=== PATIENT | female | born 1980 | race Caucasian/White ===

== ENCOUNTER 2021-10-10 21:03 | Emergency (ER) | payer BC, OTHER ==
[~2021-10-10] VITALS: Ht 162.6 cm; Wt 66.9 kg
[2021-10-10] MEDS ORDERED: BACITRACIN ZINC OINT UDPKT TOP ONE (22:00)
[2021-10-10] MEDS ORDERED: IBUPROFEN 600MG TABLET PO ONE (22:00)
[2021-10-10] MEDS ORDERED: LIDOCAINE HCL/PF 1% 10 MG/ML 5ML VIAL INFIL ONE (22:00)
[2021-10-10] MEDS ORDERED: TETANUS, DIPHTHERIA, PERTUSSIS VAC/PF 0.5ML (>10YR OLD) IM ONE (22:00)
[2021-10-10 22:15] VITALS: BP 138/79
[2021-10-10] MEDS ORDERED: LIDOCAINE HCL 1% 20ML VIAL (Pyxis) INJ INFIL NR (22:15)
[2021-10-10] MEDS ORDERED: CEFTRIAXONE SODIUM 1 G/VIAL IM ONE (23:00)
[2021-10-10] MEDS ORDERED: CEPH500C2 MT (23:53)
[2021-10-10] MEDS ORDERED: IBUP-2028 MT (23:53)
== END 2021-10-11 00:14 | disposition home or self-care (01) ==
LOC: ER 21:03
DX: S62.636A Displaced fracture of distal phalanx of right little finger, initial encounter for closed fracture (principal); Z90.49 Acquired absence of other specified parts of digestive tract; X58.XXXA Exposure to other specified factors, initial encounter; Y93.89 Activity, other specified; Y92.89 Other specified places as the place of occurrence of the external cause; Y99.8 Other external cause status
CPT/HCPCS: 12001; 73140; 90471; 90715; 96372; 99284; J0696; J3490